=== PATIENT | female | born 1940 | race African-American/Black ===

== ENCOUNTER 2017-11-02 04:19 | Emergency (ER) | payer OTHER, MEDICARE ==
[~2017-11-02] VITALS: Ht 165.1 cm; Wt 81.6 kg
--- NOTE | 2017-11-02 04:28 | ED DYSPNEA/ASTHMA COMPLAINT ---
History of Present Illness General Chief Complaint: General Adult Stated Complaint: BIBA TRACH PROBLEM Source: family, EMS, W10 Exam Limitations: physical impairment Vital Signs & Intake/Output Vital Signs & Intake/Output Vital Signs Date Time Temp Pulse Resp B/P B/P Pulse O2 O2 Flow FiO2 Mean Ox Delivery Rate 11/02 1816 96.2 67 22 160/88 100 Trach Mask 100% 11/02 1433 97.9 62 22 144/78 11/02 1433 97.9 62 22 144/78 11/02 1433 97.9 62 22 144/78 11/02 1355 95 Trach Mask 28% 11/02 1137 62 22 144/78 96 Trach Mask 11/02 1017 97.9 66 22 164/80 11/02 1016 97.9 66 22 164/80 11/02 1016 97.9 66 22 164/80 11/02 1014 97.9 66 22 164/80 11/02 1014 97.9 66 22 164/80 11/02 1014 97.9 66 22 164/80 11/02 0904 97.9 66 22 164/80 96 Trach Mask 11/02 0614 99.1 66 20 166/62 100 Trach Mask 28% 11/02 0432 99.0 65 20 160/60 96 Trach Mask 28% 11/02 0430 100 Trach Mask 28% Allergies Coded Allergies: metformin (UNKNOWN 11/02/17) Triage Nurses Notes Reviewed? yes HPI: Patient was released from [facility] yesterday. Patient returned to her nursing facility however they did not have her medication so she missed her afternoon medications. Patient has a tracheostomy and has been having increasing difficulty breathing. The respiratory therapist was able to suction the trach this afternoon however her nurses were unable to do it this evening. Patient's son is very concerned because she keeps having to go back to the hospital and he feels that the nursing facility is not equipped to take care of her. EMS felt that she potentially could have plugged her trach so they did not feel comfortable driving her into [place] so they brought her here instead. (Bishop GENAO,Dago Manzano) Reconcile Medications Amlodipine Besylate 10 MG TABLET 1 TAB PO DAILY HTN (Reported) VIA GT Atorvastatin Calcium (Lipitor) 80 MG TABLET 1 TAB PO DAILY CHOL (Reported) Clonidine HCl 0.2 MG TABLET 1 TAB PO TID BP (Reported) Docusate Sodium (Colace) 100 MG CAPSULE 1 CAP PO BID STOOL (Reported) Enoxaparin Sodium (Lovenox) 40 MG/0.4 ML SYRINGE 0.4 ML SC DAILY CLOTS ( Reported) Furosemide (Lasix) 40 MG TABLET 1 TAB PO DAILY FLUID (Reported) Hydralazine HCl 100 MG TABLET 1 TAB G TUBE TID HTN (Reported) Ipratropium/Albuterol Sulfate (Iprat-Albut 0.5-3(2.5) MG/3 Ml) 0.5 MG-3 MG (2.5 MG BASE)/3 ML AMPUL.NEB 0.5 MG INH TID SOB (Reported) Isosorbide Mononitrate (Isosorbide Mononitrate ER) 60 MG TAB.ER.24H 1 TAB G TUBE DAILY HTN (Reported) Labetalol HCl 200 MG TABLET 150 MG G TUBE BID HTN (Reported) Lansoprazole (Prevacid) 30 MG TAB.RAP.DR 1 TAB G TUBE BID REFLUX (Reported) Levetiracetam (Keppra) 500 MG TABLET 1 TAB G TUBE BID SZ (Reported) Lisinopril 10 MG TABLET 1 TAB PO DAILY HTN (Reported) Melatonin 3 MG TABLET 1 TAB G TUBE QPM SLEEP (Reported) Nystatin 100,000 UNIT/ML ORAL.SUSP 5 ML PO 4 TIMES/DAY UNK (Reported) Phenytoin (Dilantin) 100 MG CAPSULE 200 MG G TUBE TID SZ (Reported) [ROBENIL] 1 MG G TUBE TID UNK (Reported) Scopolamine 1 MG/3 DAY PATCH.TD.3 1 PATCH TP Q3D SECRETIONS (Reported) (Eileen GENAO,David Winkler) Past History Travel History Traveled to [place] past 21 day No Medical History Any Pertinent Medical History? see below for history Neurological: seizure Cardiovascular: hypertension, hyperlipidemia Endocrine: diabetes Surgical History Surgical History: TRACH Psychosocial History Tobacco Use: Quit >30 days ago ETOH Use: denies use Illicit Drug Use: denies illicit drug use Family History Hx Contributory? No (Dago Alas MD) Review of Systems Review of Systems Constitutional: Reports: no symptoms. Respiratory: Reports: see HPI. Cardiovascular: Reports: no symptoms. Neurological/Psychological: Reports: no symptoms. Immunologic/Allergic: Reports: no symptoms. (Dago Alas MD) Physical Exam Physical Exam General Appearance: well developed/nourished, alert, awake, anxious, mild distress Head: atraumatic, normal appearance Eyes: Bilateral: PERRL, EOMI. Ears, Nose, Throat: normal pharynx, hearing grossly normal, ORAL THRUSH Neck: normal inspection, supple, full range of motion Respiratory: rhonchi (SCATTERED) Cardiovascular: regular rate/rhythm, normal peripheral pulses Gastrointestinal: normal bowel sounds, soft, non-tender Neurologic/Psych: no motor/sensory deficits, awake, alert Core Measures ACS in differential dx? No CVA/TIA Diagnosis No Sepsis Present: No Sepsis Focused Exam Completed? No (Bishop GENAO,Dago Manzano) Progress Differential Diagnosis: MUCUS PLUGGING Plan of Care: Orders Procedure Date/time Status Tube Feeding 11/02 D Active CASE MANAGEMENT CONSULT 11/02 044 Active XRY-PORTABLE CHEST XRAY 11/02 0427 Active Current Medications Sig/Veronica Start time Last Medication Dose Stop Time Status Admin Atorvastatin Calcium 80 MG 1700 11/02 1700 UNVr 11/02 (Lipitor) 1648 Amlodipine Besylate 10 MG DAILY 11/02 0900 UNVr (Norvasc) Clonidine 0.2 MG TID 11/02 0900 UNVr 11/02 (Catapres) 1433 Enoxaparin Sodium 40 MG DAILY 11/02 0900 UNVr 11/02 (Lovenox) 1017 Furosemide 40 MG DAILY 11/02 0900 UNVr 11/02 (Lasix) 1016 Hydralazine HCl 100 MG TID 11/02 0900 UNVr 11/02 (Apresoline) 1433 Isosorbide Dinitrate 60 MG TID 11/02 0900 UNVr 11/02 (Isordil) 1433 Labetalol HCl 300 MG BID 11/02 0900 UNVr (Trandate-Normodyne 200MG Tab) Levetiracetam 250 MG BID 11/02 0900 UNVr 11/02 (Keppra) 1016 Lisinopril 10 MG DAILY 11/02 0900 UNVr 11/02 (Prinivil) 1017 Nystatin 5 ML Q6H 11/02 0900 AC 11/02 (Mycostatin Susp) 1648 Phenytoin 200 MG TID 11/02 0900 UNVr 11/02 (Dilantin) 1433 Omeprazole 40 MG DAILY AC 11/02 0700 UNVr 11/02 (Prilosec) 0638 Initial ED EKG: none Hand-Off Endorsed To: David Arellano MD Endorsed Time: 0700 Pending: consult (Bishop GENAO,Dago Manzano) CXR Impression: impression: Small pleural effusions with hazy bibasilar opacities which could represent atelectasis or pneumonia. Aspiration is possible. Prelim by: Joe Pope dictated on: 11/02/2017 4:49 AM Comments: 11/02/2017 7:08:43 AM patient signed out to me by Dr. Alas at shift traveler chang[facility]. Chest x-ray report faxed to the emergency department (there seems to be an issue with the electronic transmission of the reports). There appears to be no active pulmonary issue currently. I doubt that the chest x-ray report represents significant acute abnormality. 11/02/2017 5:33:57 PM patient's son has requested that she be transferred to [facility] based primarily on her poor care at [place]. I am attempting to obtain a chest x-ray report from [facility] to assess whether or not there has been an acute change requiring hospitalization. I've just updated patient and her son on this. (Eileen GENAO,David Winkler) Comments: Family upset with ED care and inability to hospitalize patient. They request transfrer to [facility]. D/W Dr. Otilio Patel accepts in transfer. (Zak Forrester MD) Departure Departure Condition: Stable Departure Forms: Customer Survey General Discharge Information (Dago Alas MD) Departure Time of Disposition: 2019 Disposition: OTHER GENERAL HOS[facility] (ACUTE) Clinical Impression Primary Impression: Trachea, foreign body Secondary Impressions: Seizure (Zak Forrester MD) Critical Care Note Critical Care Note Critical Care Time: non-applicable (Dago Alas MD) Critical Care Note Critical Care Time: 30-74 min (30) (Zak Forrester MD)
[2017-11-02] MEDS ORDERED: LASIX40 M1 PO (11:10)
[2017-11-02] MEDS ORDERED: NYSTATIN100000 UNI PO (11:11)
[2017-11-02] MEDS ORDERED: CLONIDINE HCL0.2 M1 PO (11:11)
[2017-11-02] MEDS ORDERED: AMLODIPINE BESY10 M1 PO (11:12)
[2017-11-02] MEDS ORDERED: LIPITOR80 M1 PO (11:12)
[2017-11-02] MEDS ORDERED: LISINOPRIL10 M1 PO (11:12)
[2017-11-02] MEDS ORDERED: LOVENOX40 MG/0.1 SC (11:13)
[2017-11-02] MEDS ORDERED: COLACE100 M1 PO (11:13)
[2017-11-02] MEDS ORDERED: [UNRECOGNIZED DRUG - OTHER] G TUBE (11:14)
[2017-11-02] MEDS ORDERED: HYDRALAZINE HC100 M1 G TUBE (11:16)
[2017-11-02] MEDS ORDERED: IPRAT-ALBUT 0.5-3 ML INH (11:16)
[2017-11-02] MEDS ORDERED: LABETALOL HCL200 M1 G TUBE (11:17)
[2017-11-02] MEDS ORDERED: KEPPRA500 M1 G TUBE (11:18)
[2017-11-02] MEDS ORDERED: ISOSORBIDE MONO60 M1 G TUBE (11:18)
[2017-11-02] MEDS ORDERED: DILANTIN100 M1 G TUBE (11:19)
[2017-11-02] MEDS ORDERED: MELATONIN3 M4 G TUBE (11:19)
[2017-11-02] MEDS ORDERED: PREVACID30 M2 G TUBE (11:21)
[2017-11-02] MEDS ORDERED: SCOPOLAMINE1 EAC1 TP (11:21)
[2017-11-02 21:26] VITALS: BP 168/80
--- NOTE | 2017-11-04 09:54 | RADIOLOGY REPORT ---
EXAMINATION: XR PORTABLE CHEST CLINICAL INFORMATION: Cough. Trach. COMPARISON: None TECHNIQUE: Portable frontal view of the chest was obtained. FINDINGS: Tracheostomy tube. Lung volumes are low. There are hazy bibasilar opacities. Likely small pleural effusions. No pneumothorax. The cardiomediastinal silhouette appears mildly prominent. IMPRESSION: Small pleural effusions with hazy basilar opacities which could represent atelectasis or pneumonia. Aspiration is possible.
== END 2017-11-02 22:45 | disposition short-term general hospital (02) ==
LOC: ERH 04:19
DX: T17.408A Unspecified foreign body in trachea causing other injury, initial encounter (principal); R56.9 Unspecified convulsions
CPT/HCPCS: 1342; 71045; J1650